=== PATIENT | female | born 1965 | race Two or more races ===

== ENCOUNTER → 2025-08-04 | Outpatient (CLI) | payer BC, SELFPAY ==
--- NOTE | 2025-08-04 15:00 | XR_ITS ---
Exam: MRI knee without contrast, left Date and time of exam: August 04, 2025 1845 hours INDICATIONS: Medial knee pain joint clicking 4 months Technique: Multiple axial, coronal, and sagittal sections on the knee have been obtained. T2-Weighted sagittal, fat-suppressed images, TR 3,500, TE 62, T2 weighted coronal fat-saturated images, TR 3,500, TE 62 Proton density sagittal sections, TR 1800, TE 31. T-1 weighted coronal images, TR 524, TE 13.0 Findings: Medial meniscus anterior horn intact. Medial meniscus, body meniscocapsular separation. Posterior horn medial meniscus intact. Lateral meniscus anterior horn is intact Lateral meniscus, body is intact Posterior horn lateral meniscus is intact Anterior cruciate ligament appears moderate sprain Posterior cruciate ligament appears intact. Knee effusion is large. Quadriceps and patellar tendons appear intact. There is no evidence of tendinosis. Inflammatory change or fracture of Hoffa's fat pad is not seen. Medial patellar facet demonstrates moderate thinning. Lateral patellar facet cartilage demonstrates moderate thinning. Trochlear cartilage demonstrates moderate thinning. Marrow signal adequate. Medial collateral ligament appears intact. Illiotibial band and fibular collateral ligament are intact. Biceps femoris tendons appear intact. Medial femoral condylar articular cartilage demonstrates moderate thinning. Lateral femoral condylar articular cartilage demonstratesmoderate thinning. Tibial plateau cartilage demonstrates moderate thinning. Impression: Meniscocapsular separation body the medial meniscus Moderate sprain anterior cruciate ligament
== END | disposition home or self-care (01) ==
LOC: SMRI 14:45
PROVIDERS: PCP Internal Medicine; Referring Provider Orthopaedic Surgery; Visit Provider Orthopaedic Surgery
DX: S83.232A Complex tear of medial meniscus, current injury, left knee, initial encounter (principal); S83.512A Sprain of anterior cruciate ligament of left knee, initial encounter; X58.XXXA Exposure to other specified factors, initial encounter
CPT/HCPCS: 73721

== ENCOUNTER → 2025-08-15 | Outpatient (CLI) | payer BC, SELFPAY ==
[2025-08-15 12:04] LABS: Basophils # (Auto) 0.0 Thou/mm3 (0.0-0.2); Basophils % (Auto) 0 % (0-2.5); Eosinophils # (Auto) 0.0 Thou/mm3 (0.0-0.5); Eosinophils % (Auto) 1 % (0-10); Hematocrit 39.3 % (36.0-46.0); Hemoglobin 13.3 g/dL (12.0-16.0); Immature Granulocytes Auto 0.01 Thou/mm3 (0.00-0.00); Lymphocytes # (Auto) 3.1 Thou/mm3 (1.0-4.8); Lymphocytes % (Auto) 48 % (10-50); Mean Corpuscular HGB Conc 33.8 g/dl (31.0-37.0); Mean Corpuscular Hemoglobin 28.7 pg (25.0-35.0); Mean Corpuscular Volume 85 fL (80-100); Monocytes # (Auto) 0.5 Thou/mm3 (0.0-0.8); Monocytes % (Auto) 7 % (0-12); Neutrophils # (Auto) 2.7 Thou/mm3 (1.8-7.7); Neutrophils % (Auto) 43 % (37-80); Nucleated Red Blood Cell # 0.00 Thou/mm3 (0.00-0.00); Nucleated Red Blood Cell % 0 /100 WBC (0); Platelet Count 234 Thou/mm3 (140-440); RDW Standard Deviation 40.2 fL (36.4-46.3); Red Blood Count 4.63 Miln/mm3 (4.00-5.20); White Blood Count 6.3 Thou/mm3 (3.6-11.0)
[2025-08-15 12:24] LABS: Alanine Aminotransferase 18 U/L (10-49); Albumin, Serum 4.5 gm/dL (3.4-4.8); Albumin/Globulin Ratio 1.6 (1.2-2.2); Alkaline Phosphatase 125 U/L (46-116); Anion Gap 7 (7-16); Aspartate Amino Transferase 20 U/L (0-34); BUN/Creatinine Ratio 13 Ratio (12-20); Bilirubin,Total 0.5 mg/dL (0.3-1.2); Blood Urea Nitrogen 10 mg/dL (9-23); Calcium 9.7 mg/dL (8.3-10.6); Calcium (Corrected) 9.7 mg/dL (8.5-10.1); Carbon Dioxide 28.6 mMol/L (20.0-31.0); Chloride 105 mMol/L (98-107); Creatinine (Component) 0.8 mg/dL (0.6-1.3); Globulin 2.8 gm/dL (2.3-3.5); Glucose 115 mg/dL (74-106); Osmolality,Calculated 281 (275-295); Potassium 4.6 mMol/L (3.4-5.1); Sodium 141 mMol/L (136-145); Total Protein 7.3 gm/dL (5.7-8.2); eGFR > 60 See Note
== END | disposition home or self-care (01) ==
LOC: COPL 11:05
PROVIDERS: PCP Internal Medicine; Referring Provider Orthopaedic Surgery; Visit Provider Orthopaedic Surgery
DX: Z79.1 Long term (current) use of non-steroidal anti-inflammatories (NSAID) (principal)
CPT/HCPCS: 36415; 80053; 85025

== ENCOUNTER 2025-09-28 08:38 | Outpatient (AMB) | payer BC, SELFPAY ==
--- NOTE | 2025-09-28 09:12 | ORTHONT_ITS ---
Vital signs 09/28/25 09:13 Height 1.6 m Height Method Measured Weight 65.799 kg Weight Measurement Method Standing Scale BMI 25.7 BP 125/77 Blood Pressure Source Automatic Cuff Blood Pressure Location Left Upper Arm Position Sitting Respiration 18 Pulse 65 Pulse Source Monitor Temp 97.7 F Temp Source Temporal Artery Scan Pulse Oximetry (%) 95 Oxygen Delivery Method Room Air Med/Allergies Allergies & Medications Allergies No Known Allergies Allergy (Verified 09/28/25 09:14) Medication Reconciliation celecoxib 200 mg capsule 200 mg PO BID 09/28/25 [History Confirmed 09/28/25] Exam Exam Patient is in no acute distress and is cooperative with the examination today. Breathing is nonlabored. Patient has a normal mood and affect. Bilateral extremities were evaluated and demonstrates sensation intact to light touch. Palpable pedal pulses are present. No significant edema is present. Bilateral hips were examined. The patient has no pain with log roll of the hips. Internal rotation to 30 degrees and external rotation to 30 degrees is painless. Negative FADIR. Right knee was examined today. The right knee is in reasonable alignment. Range of motion from 0-120 degrees. Knee is stable to varus and valgus as well as AP translation with <5mm. Patient has a negative McMurrays. There is no pain with patellofemoral compression and no crepitus noted. The knee is nontender to palpation. Left knee was examined today. The left knee is in varus alignment. Range of motion from 0-115 degrees. Knee is stable to varus and valgus as well as AP translation with <5mm. Patient has a positive McMurrays. There is no pain with patellofemoral compression and no crepitus noted. The knee is tender to palpation medially. An MRI demonstrates a posterior horn medial meniscus tear Assessment and Plan Problem List (1) Arthritis of left knee: Status: Acute Plan: ASSESSMENT AND PLAN 1. Left knee meniscal tear: Experiencing left knee pain since March or April 2025, with a consistent pain level of 6 out of 10 and occasional swelling. Informed of a left knee meniscus tear and has had laying down x-rays but no standing x-rays. Has not tried injections or physical therapy and is currently taking Celebrex, which has provided some relief. A cortisone injection is recommended to help with swelling and pain. Potential side effects, including increased painand infection, were discussed. A standing x-ray will be conducted post-injection. If needed, another cortisone injection can be administered in 3 months. A cortisone injection will be administered today to help with swelling and pain. Continue taking Celebrex for another week until the cortisone injection takes effect, after which it can be taken as needed. A standing x-ray will be conducted post-injection to further evaluate the knee. If the cortisone injection is not effective, a gel injection can be considered as an alternative, though it is more expensive and takes longer to take effect. Physical therapy will be arranged at her preferred location and can be scheduled around her work hours. Surgery is not recommended at this time as 80-90% of cases improve without it. If the knee becomes physically stuck, surgery may be reconsidered. Recommend knee cortisone injection as patient would like to proceed with conservative treatment at this time. The risks and benefits of the procedure were reviewed with the patient and patient gave verbal consent to continue with the procedure. Procedure: performed by Dr. Ray Using sterile technique the left knee was thoroughly prepped with alcohol, and approximately 1 cc of Depo-Medrol 80mg/mL and 4 cc of 0.2% ropivacaine was injected without resistance into the medial tibial femoral joint space. The patient tolerated the procedure. 2. Arthritis: Arthritis in the left knee is contributing to pain and swelling. Currently taking Celebrex, which has helped reduce the swelling. Physical therapy is recommended and will be arranged at her preferred location. Advised to continue taking Celebrex for another week until the cortisone injection takes effect, after which it can be taken as needed. Physical therapy will be arranged at her preferred location to help manage arthritis symptoms. Continue taking Celebrex for another week until the cortisone injection takes effect, after which it can be taken as needed. If the cortisone injection is not effective, a gel injection can be considered as an alternative. Surgery is not recommended at this time as 80-90% of cases improve without it. If the knee becomes physically stuck, surgery may be reconsidered. 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 (8304-2315) Surgical Proc/IM SQ injection Minor Surgical Procedure: Yes (KNEE INJECTION ) Medication Given Medication Given Medication Given: Yes Documented Dose Given: 1 Route: Infiitration Medication Given Medication Given Medication Given: Yes Documented Dose Given: 4 Route: Infiitration Office Meds methylprednisolone acetate 80 mg/mL suspension for injection Performing Provider: Juan R Ray MD Performing Location: [facility] Administered by: Juan R Ray MD on 09/28/25 09:54 Dose Route Admin Location Dispensed Lot Number Expiration Date Pack age [facility] Tear Down Man 80 mg intra-articular KNEE 1 mL [id number] 06/29/27 [address]-9 [id number] [employer] ropivacaine (PF) 2 mg/mL (0.2 %) injection solution Performing Provider: Juan R Ray MD Performing Location: [facility] Administered by: Juan R Ray MD on 09/28/25 09:54 Dose Route Admin Location Dispensed Lot Number Expiration Date Pack age [facility] Tear Down Man 20 mL Infiltration KNEE 20 mL [id number] 12/30/27 90827-516-27 [id number] [facility] Intake Visit Data Collection New Patient or Established: New Patient (never been to [facility]) Reason for Visit:: LEFT KNEE MENISCUS TEAR Seen by Clinical Staff ONLY (RN/MA): No Wood Hacker Required: No PCP or OBGYN visit in last 3 months: Yes Hx Now: No Do You Feel Safe at Home: Yes Authorities Contacted: N/A Questionairres Past Medical History Past Medical History Have you ever been diagnosed with any of the following: Cardiology Problems Angina: Yes Heart Murmur: Yes Congestive Heart Failure: No Respiratory Problems Chronic Obstructive Pulmonary Disease (COPD): No Bronchitis: Yes Genital/Urinary Problems Renal Disease: No Reproductive Problems Previous Pregnancies: Yes () Musculoskeletal Problems Arthritis: Yes Carpal Tunnel Syndrome: Yes Endocrine Problems Diabetes Mellitus Type 1: No Diabetes Mellitus Type 2: No Blood Problems Anemia: Yes Other Problems Chicken Pox: Yes Subjective Visit Visit for: new patient Immunization / Flu Flu Vaccine in the Last 12 Months: No Flu Vaccine Exclusion Criteria: Refused by Patient History of Present Illness Chief complaint: LEFT KNEE MENISCUS TEAR HISTORY OF PRESENT ILLNESS I, Juan R Ray, have obtained verbal consent from the patient, to be recorded during this encounter which may include, but not limited to, medical history, examination, treatment plans, and relevant health information.? Patient was informed that recording will be read and reviewed by myself before inclusion in the medical chart. The patient is a pleasant 60-year-old female who presents today for her left knee pain. She has been experiencing left knee pain since the end of March or beginning of April 2025. She was diagnosed with a left knee meniscus tear. She had laying down x-rays at the urgent care in [place] but has not had any standing x-rays. She has had no knee or hip surgeries. She rates the pain level as a 6 out of 10 and describes it as consistent. She also reports popping in the knee. She has not tried injections or physical therapy. She is currently taking anti-inflammatory medication, which is still helping. Her left knee has been causing discomfort, with occasional mild pain. She has been under the care of Dr. Solis, who prescribed Celebrex for her left knee, which she reports as beneficial. She notes slight swelling in her knee, which was previously more pronounced. She also observed fluid accumulation in her k nee, which has since decreased. She reports no specific injury that could have triggered the onset of her symptoms. Her pain began around 05/13/2025, subsided, and then recurred intermittently. Two weeks prior to 05/13/2025, she experienced severe pain, which led her to rest her knee. The pain subsided a week before her son's wedding but returned a week later. She recalls an incident where she kindra riedly exited a car, causing her knee to buckle, but she managed to prevent a fall. She continued to experience intermittent pain over the past 3 to 4 months, which has recently improved. After resting her knee post-wedding, the pain subsided again. However, two weeks later, she experienced soreness, followed by the return of the pain and swelling. She sought medical attention at an urgent care facility on 06/20/2025, where she was offered anti-inflammatory medication, which she declined due to its potency. She then consulted with Dr. Simmons, who prescribed a different medication that seemed to alleviate her symptoms. An x- ray was performed at the urgent care facility, but no abnormalities were detected. She was informed that her symptoms were likely due to arthritis. Despite this, her pain persisted, prompting her to seek further evaluation from Dr. Simmons and request an MRI. She has not undergone any standing x-rays. She reports that her knee would click between April and May 2025, which would temporarily relieve her pain. She also experienced shooting pain down her leg, which has since subsided. She experiences pain while walking and sitting but can tolerate it. She is considering physical therapy and is interested in trying a cortisone injection. She is curious about the potential side effects of cortisone injections and whether they would require her to take time off work. She is also interested in understanding the progression of her arthritis. She had shoulder surgery performed by Dr. Bro Mai and occasionally experiences mild pain. PAST SURGICAL HISTORY: Shoulder surgery performed by Dr. Bro Mai. Personal History Red flag PMH: none BMI Counceling provided: No Pain Pain level (0-10): 6 Pain location: inside (medial) and anterior Pain quality: aching Pain timing: increases with activity Associated signs & symptoms: none Ambulatory data Ambulatory device: none Treatments Number of previous injections: 0 Improvement with previous injections: No Number of Physical Therapy sessions: 0 Improvement with PT: No Improvement with NSAIDS: yes (CELECOXIB) Review of Systems Review of Systems: All systems negative unless otherwise noted in HPI.
[2025-09-28 09:13] VITALS: BP 125/77; PULSE 65; RESP 18; TEMP 36.5; O2SAT 95; BMI 25.7
--- NOTE | 2025-09-28 09:23 | XR_ITS ---
EXAMINATION: Bilateral AP knees standing single view PA lateral axial left knee 3 views TECHNIQUE: Standing AP bilateral knees single view Right knee PA flexion standing, lateral standing, axial left knee 3 views total 4 views Date and time: September 28, 2025, 0948 hours INDICATIONS: Left knee pain beginning 5 months ago. FINDINGS: Prominent osteopenia Moderate narrowing medial joint spaces Mild to moderate osteoarthritis left patellofemoral joint No fracture or patellar dislocation IMPRESSION: Moderate narrowing medial joint spaces Mild to moderate osteoarthritis left patellofemoral joint
== END 2025-09-28 09:35 | disposition home or self-care (01) ==
LOC: HODSRG 08:38
PROVIDERS: PCP Internal Medicine; Referring Provider Internal Medicine; Supervising Provider Orthopaedic Surgery Adult Reconstructive Orthopaedic Surgery; Visit Provider Orthopaedic Surgery Adult Reconstructive Orthopaedic Surgery
DX: M25.562 Pain in left knee (principal); S83.207A Unspecified tear of unspecified meniscus, current injury, left knee, initial encounter; X58.XXXA Exposure to other specified factors, initial encounter; M17.12 Unilateral primary osteoarthritis, left knee
CPT/HCPCS: 20610; 73564; 99203; J1010; J2795; G0463

== ENCOUNTER → 2025-11-28 | Outpatient (CLI) | payer BC, SELFPAY ==
--- NOTE | 2025-11-28 14:00 | XR_ITS ---
Examination: Breast ultrasound complete, bilateral Date and time of exam: November 28, 2025, 1357 hours INDICATIONS: Family history of breast cancer, mammogram September 30, 2022 suspicious mass 2 o'clock position left breast, biopsied December 11, 2022 Technique: Real-time grayscale ultrasonographic imaging bilateral breasts, including all 4 quadrants as well as nipple retroareolar and axillary regions. Findings: Sonographic images right breast 6:00 nodule with breast biopsy marker lobular margins 7 x 7 mm 7:00 nodule lobular margins 21 x 21 mm breast marker 9:00 cyst, 3 x 3 mm Retroareolar cyst 9 x 8 mm Sonographic images left breast 1:00 cyst 9 x 10 mm 2:00 nodule lobular margins 14 x 13 mm 2:00 nodule indistinct margins 10 x 11 mm 2. O'clock nodule indistinct margins 12 x 14 mm 9:00 nodule lobular margins 6 x 6 mm IMPRESSION: BI-RADS Category 4: Suspicious for malignancy Suspicious nodule 7 o'clock position right breast and 2 suspicious nodules 2 o'clock position left breast, recommend biopsy of all 3 nodules to exclude breast carcinoma, under ultrasound guidance
--- NOTE | 2025-11-28 15:00 | XR_ITS ---
Examination: Screening digital mammography, bilateral Computer aided detection 3-D breast Tomosynthesis, bilateral Date and time of exam: 11/28/2025, 9:50 a.m. Comparisons: 09/30/2022 Indications: Screening Technique: Nonmagnified MLO, CC views of the breasts to been obtained, reconstructed from 3-D Tomosynthesis images. R2 computer aided detection program utilized for evaluation of suspicious masses and/or abnormal calcifications. 3-D Tomosynthesis images obtained. Technologist: Findings: The breasts are heterogeneously dense, which may obscure small masses. No evidence of abnormal masses or suspicious calcifications. Stable right post biopsy marker clip. New left post biopsy marker clip Impression: BI-RADS category 1: Negative findings (within normal) Recommend 1 year follow-up mammogram
== END | disposition home or self-care (01) ==
LOC: CDIM 13:36
PROVIDERS: PCP Internal Medicine; Referring Provider Internal Medicine; Visit Provider Internal Medicine
DX: Z12.31 Encounter for screening mammogram for malignant neoplasm of breast (principal); R92.313 Mammographic fatty tissue density, bilateral breasts; N63.13 Unspecified lump in the right breast, lower outer quadrant; N63.21 Unspecified lump in the left breast, upper outer quadrant
CPT/HCPCS: 76641; 77063; 77067